=== PATIENT | female | born 1980 | race Caucasian/White ===

== ENCOUNTER 2016-12-03 11:19 | Emergency (ER) | payer MEDICAID ==
[~2016-12-03] VITALS: Ht 160 cm; Wt 79.0 kg
[~2016-12-03 11:19] MED LIST: FERR27TA PO; FIORICET PO; FOLI0.4T2 PO; IBUP800T25 PO; NITR-58 PO; PREN1TAB49 PO; PREN1TAB9 PO
[2016-12-03 11:48] VITALS: Ht 160 cm; Wt 79.0 kg
[2016-12-03] MEDS ORDERED: DIPHENHYDRAMINE 50 MG INJ IV STA (13:29)
[2016-12-03] MEDS ORDERED: KETOROLAC 30 MG INJ IV STA (13:29)
[2016-12-03] MEDS ORDERED: METOCLOPRAMIDE 10 MG INJ IV STA (13:29)
[2016-12-03] MEDS ORDERED: SOD CHLORIDE 0.9% 1,000 ML IV STA (13:29)
[2016-12-03] MEDS ORDERED: ONDA8TAB14 PO (15:56)
[2016-12-03] MEDS ORDERED: ONDA4TAB8 PO (15:56)
[2016-12-03] MEDS ORDERED: EXCED PO (15:57)
[2016-12-03 16:14] VITALS: BP 145/77; PULSE 83; RESP 20; TEMP 98.3
--- NOTE | 2016-12-03 17:04 | ERD ---
ER Documentation Chief Complaint Date/Time DATE: 12/03/16 TIME: 17:00 Chief Complaint HEADCAHE , VOMITING , GENERALIZED RASH HPI This is a 36-year-old female presents to the ED with headache and vomiting. She states that she has had these headaches in the past. She states that she gets them on and off weekly. She states that the pain is localized around her entire head. She denies neck pain. She states that this is the same type of pain she has had in the past. She denies stating that this is the "worst headache of her life." She states that she takes Tylenol and ibuprofen at home with minimal relief. She also complains of nonbloody nonbilious emesis that happened 1 time today. Her current pain started 3 days ago. She states that it is gradually getting worse. She denies abdominal pain, chest pain, shortness of breath or difficulty breathing. She denies dizziness, blurry vision or difficulty hearing. She denies sensitivity to light or sound. She denies leg pain or swelling. She denies urinary symptoms. ROS All systems reviewed and are negative except as per history of present illness. Medications Home Meds Active Scripts Acetaminophen/Aspirin/Caffeine* (Excedrin*) 1 Tab Tab, 1 TAB PO BID for 14 Days , TAB Prov:GARRICK MCLAUGHLIN PA-C 12/03/16 Ondansetron Hcl* (Zofran*) 4 Mg Tablet, 4 MG PO Q6H for NAUSEA AND/OR VOMITING, #30 TAB Prov:GARRICK MCLAUGHLIN PA-C 12/03/16 Nitrofurantoin Monohyd Macrocr* (Macrobid*) 100 Mg Capsr, 100 MG PO BID for 14 Days, CAP Prov:KRYSTAL DUENAS PA-C 07/18/16 Acetamin/Butalbital/Caffeine* (Fioricet*) 1 Tab Tab, 1 TAB PO Q4H Y for PAIN LEVEL 1-5, #30 TAB Prov:KRYSTAL DUENAS PA-C 07/18/16 Ibuprofen* (Motrin*) 800 Mg Tab, 800 MG PO Q6, #30 TAB Prov:BILL LUZ NP 02/03/16 Reported Medications Vits W-Ca,Fe,Fa(<1MG) ( Formula) 1 Tab Tablet, 1 TAB PO DAILY 03/27/14 Ferrous Sulfate (Iron) 1 Tab Tablet, 1 TAB PO DAILY 07/24/12 Folic Acid* (Folic Acid*) 0.4 Mg Tablet, 0.4 MG PO DAILY 07/24/12 Vits W-Ca,Fe,Fa(<1MG) () 1 Tab Tablet, 1 TAB PO 07/07/12 [None] No Conflict Check 04/30/10 Discontinued Scripts Ondansetron (Ondansetron Odt) 8 Mg Tab.rapdis, 8 MG PO Q6H Y for NAUSEA AND/OR VOMITING, #10 TAB Prov:GARRICK MCLAUGHLIN PA-C 12/03/16 Allergies Allergies: Coded Allergies: No Known Drug Allergies (Verified Allergy, Mild, 07/19/16) PMhx/Soc History of Surgery: Yes (cholecystectomy) Anesthesia Reaction: No Hx Neurological Disorder: No Hx Respiratory Disorders: No Hx Cardiac Disorders: Yes (GESTATIONAL HTN) Hx Psychiatric Problems: No Hx Miscellaneous Medical Probl: Yes (migraines) Hx Alcohol Use: No Hx Substance Use: No Hx Tobacco Use: No Physical Exam Vitals Physical Exam GENERAL: Well-developed, well-nourished female. Appears in mild distress. HEAD: Normocephalic, atraumatic. EYES: Pupils are equally reactive bilaterally. EOMs grossly intact. No conjunctival erythema. ENT: Moist mucous membranes. No uvula deviation. No kissing tonsils. No exudates. NECK: Supple. No lymphadenopathy or thyromegaly. No meningismus. negative kernig. negative brudinski. LUNG: Clear to auscultation bilaterally. No rhonchi, wheezing, rales or coarse breath sounds. HEART: Regular rate and rhythm. No murmurs, rubs or gallops. BACK: No midline tenderness. Extremities: Equal pulses bilaterally. No peripheral clubbing, cyanosis or edema. No unilateral leg swelling. NEUROLOGIC: Alert and oriented. Moving all four extremities. 5/5 strength in all extremities. Normal speech. Steady gait. Cranial nerves II through XII intact. SKIN: Normal color. Warm and dry. No rashes or lesions. Capillary refill < 2 seconds Results 24 hrs Current Medications Medications (Trade) Dose Ordered Sig/Shailesh Route PRN Reason Start Time Stop Time Status Last Admin Dose Admin Sodium Chloride (NS) 1,000 ml @ 1,000 mls/hr Q1H STAT IV 12/03/16 13:29 12/03/16 14:28 DC 12/03/16 14:17 Metoclopramide HCl (Reglan) 10 mg ONCE STAT IV 12/03/16 13:29 12/03/16 13:32 DC 12/03/16 14:15 Ketorolac Tromethamine (Toradol) 30 mg ONCE STAT IV 12/03/16 13:29 12/03/16 13:32 DC 12/03/16 14:15 Diphenhydramine HCl (Benadryl) 25 mg ONCE STAT IV 12/03/16 13:29 12/03/16 13:32 DC 12/03/16 14:15 Procedures/MDM ER COURSE: I kept the patient and/or family informed of laboratory and diagnostic imaging results throughout the emergency room course. MEDICATIONS: IV fluids, Toradol, Reglan and Benadryl. Patient tolerated medication well with improvement in symptoms. Urine test was negative. MEDICAL DECISION MAKING: This is a 36-year-old who presents with chronic migraine. Vital signs were reviewed. Patient is afebrile. Patient is not hypoxic. Patient is not toxic or ill-appearing. Patient has a migraine. Low suspicion for intracranial hemorrhage, meningitis, intracranial mass, concussion, temporal arteritis, stroke, elevated intracranial pressure, seizure. I do not think CT scan is warranted at this time, risk versus benefits. Patient had a recent CT scan in June 2016 which was unremarkable. Patient states that her headaches are similar to the ones that she has in the past and she denies any trauma or new injuries. Patient is also not wanting a CT scan today. DISCHARGE: At this time, patient is stable for discharge and outpatient management with no new complaints during the ER course. Patient was sent home with Lucy advised patient to follow-up with neurology as she has had these headaches in the past for better evaluation and treatment.. Patient will be discharged home with instructions to recheck for new or worsening symptoms such as fever, nausea, weakness, LOC and to follow up with primary care in the next 1 -2 days. Patient was advised to return to the ER for any new or worsening symptoms. Plan was discussed and patient and/or family understands and agrees. Home instructions were given. Departure Diagnosis: Primary Impression: Headache Headache type: unspecified Headache chronicity pattern: chronic headache Intractability: not intractable Qualified Code: R51 - Chronic nonintractable headache, unspecified headache type Condition: Stable Patient Instructions: Self-Care for Headaches Referrals: [facility] (PCP) Additional Instructions: Llame al doctor DOREEN y clari bryan ELEAZAR PARA DENTRO DE 1-2 ROSE.Dgale a la secretaria que nosotros le instruimos hacer esta eleazar.Avise o llame si castellanos condicin se empeora antes de la eleazar. Regresa aqui si peor o no mejor. GARRICK MCLAUGHLIN PA-C Dec 03, 2016 17:04 [facility] (PCP) Additional Instructions: Llame al doctor DOREEN y clari bryan ELEAZAR PARA DENTRO DE 1-2 ROSE.Dgale a la secretaria que nosotros le instruimos hacer esta eleazar.Avise o llame si castellanos condicin se empeora antes de la eleazar. Regresa aqui si peor o no mejor. GARRICK MCLAUGHLIN PA-C Dec 03, 2016 17:04
== END 2016-12-03 16:15 | disposition home or self-care (01) ==
LOC: FTE 11:19
DX: R51 Headache (principal); R11.10 Vomiting, unspecified
CPT/HCPCS: 96374; 96375; J1200; J1885; J2765; J7030; Z7502

== ENCOUNTER 2017-01-22 03:01 | Emergency (ER) | payer MEDICAID ==
[~2017-01-22] VITALS: Ht 162.6 cm; Wt 73.7 kg
[~2017-01-22 03:01] MED LIST changes: +EXCED PO; +ONDA4TAB8 PO
[2017-01-22 03:09] VITALS: Ht 162.6 cm; Wt 73.7 kg
[2017-01-22 04:25] LABS: URINE BLOOD (Dip) POC 2+ (NEGATIVE)
[2017-01-22] MEDS ORDERED: SOD CHLORIDE 0.9% 1,000 ML IV STA (04:27)
[2017-01-22] MEDS ORDERED: morphine 2 MG INJ IV STA (04:27)
[2017-01-22] MEDS ORDERED: ONDANSETRON 4 MG INJ IV STA (04:27)
[2017-01-22 04:41] LABS: ADD SCAN DIFF NO
[2017-01-22 04:48] LABS: BASOPHIL # 0.1 10^3/ul (0.0-0.1); BASOPHILS % 0.3 % (0.0-2.0); EOSINOPHILS # 0.1 10^3/ul (0.0-0.5); EOSINOPHILS % 0.5 % (0.0-7.0); HEMATOCRIT 37.8 % (37.0-47.0); HEMOGLOBIN 12.1 g/dl (12.0-16.0); LYMPHOCYTES # 1.8 10^3/ul (0.8-2.9); LYMPHOCYTES % 12.3 % (15.0-51.0); MEAN CORPUSCULAR HEMOGLOBIN 26.2 pg (29.0-33.0); MEAN CORPUSCULAR VOLUME 81.8 fl (82.0-101.0); MONOCYTE # 0.7 10^3/ul (0.3-0.9); MONOCYTES % 4.4 % (0.0-11.0); NEUTROPHIL # 12.2 10^3/ul (1.6-7.5); NEUTROPHILS % 82.1 % (39.0-77.0); PLATELET COUNT 382 10^3/UL (140-415); RED BLOOD COUNT 4.62 10^6/ul (4.20-5.40); RED CELL DISTRIBUTION WIDTH 13.9 % (11.5-14.5); WHITE BLOOD COUNT 14.9 10^3/ul (4.8-10.8)
[2017-01-22 04:56] LABS: ALBUMIN 4.1 g/dl (3.3-4.9)
[2017-01-22 04:57] LABS: POTASSIUM 3.4 mmol/L (3.5-5.1)
[2017-01-22 04:59] LABS: ALBUMIN/GLOBULIN RATIO 0.97; BILIRUBIN,INDIRECT 0.3 mg/dl (0-1.1); BILIRUBIN,TOTAL 0.3 mg/dl (0.2-1.3); CREATININE 0.61 mg/dl (0.44-1.00); TOTAL PROTEIN 8.3 g/dl (6.1-8.1)
[2017-01-22 05:00] LABS: CALCIUM 9.1 mg/dl (8.4-10.2)
--- NOTE | 2017-01-22 05:11 | RADRPT ---
PROCEDURE: CT of the abdomen and pelvis without contrast CLINICAL INDICATION: Flank pain. Evaluate for urolithiasis.. TECHNIQUE: Spiral CT images through the abdomen and pelvis without the use of contrast. The admin istered radiation dose is CTDI 11.40 and DLP 644.63. One or more of the following dose reduction te chniques were used: automated exposure control, adjustment of the mA and/or kV according to patient size, or use of iterative reconstruction technique. COMPARISON: None FINDINGS: Lack of oral and intravenous contrast somewhat limits evaluation. Slight dependent atelectasis of the lung bases is seen. No pleural effusion is seen. The liver, spleen, adrenals, left kidney, and pancreas are unremarkable in appearance. Two small no nobstructing right renal stones are seen. The larger is in the upper pole and measures 4 mm in diam eter. No left renal stones are seen. There is slight right perinephric stranding but no definite u reter or bladder stone is seen. There is no evidence for bowel obstruction, free air, or abscess. T he appendix is normal in appearance. There is colonic diverticulosis without evidence of diverticul itis. No adenopathy or ascites is seen. The uterus and adnexa are grossly unremarkable. Tiny fat-co ntaining umbilical hernia is seen.. IMPRESSION: Two small nonobstructing right renal stones. Slight right perinephric stranding without a visualize d ureter or bladder stone or hydronephrosis. This could be due to a recently passed stone. Few col onic diverticula but no evidence for diverticulitis.. Small fat-containing umbilical hernia. RPTAT: [facility] Physician Renee Date Time Electronically viewed and signed by Physician Renee on 01/22/2017 05:10 LE/
[2017-01-22] MEDS ORDERED: CEFTRIAXONE 1 GM/50 ML (PMX) 50 ML IVPB ONE (05:30)
[2017-01-22 05:41] VITALS: BP 136/85; PULSE 97; RESP 20; TEMP 98
[2017-01-22] MEDS ORDERED: DICLOFENAC SODIUM 37.5 MG/ML VIAL IV STA (05:44)
[2017-01-22] MEDS ORDERED: HYDR-906 PO (05:54)
[2017-01-22] MEDS ORDERED: CIPR500T4 PO (05:54)
[2017-01-22] MEDS ORDERED: NITR-58 PO (05:54)
[2017-01-22] MEDS ORDERED: NAPR-688 PO (05:54)
--- NOTE | 2017-01-22 06:19 | ERD ---
ER Documentation Chief Complaint Date/Time DATE: 01/22/17 TIME: 06:15 Chief Complaint right flank pain x 1 week HPI This 36-year-old female presents with right flank pain and dysuria going on for 1 week. She denies any fever or chills. She's had no nausea vomiting diarrhea. Denies any blood in her urine. Denies trauma. ROS All systems reviewed and are negative except as per history of present illness. Medications Home Meds Active Scripts Naproxen* (Naproxen*) 500 Mg Tablet, 500 MG PO BID Y for PAIN, #14 TAB Prov:RAFAEL MACDONALD DO 01/22/17 Hydrocodone/Acetaminophen ([place] 5-325 Tablet) 1 Each Tablet, 1 EACH PO Q6 for SEVERE PAIN LEVEL 7-10, #14 TAB Prov:RAFAEL MACDONALD DO 01/22/17 Nitrofurantoin Monohyd Macrocr* (Macrobid*) 100 Mg Capsr, 100 MG PO BID for 7 Days, CAP Prov:RAFAEL MACDONALD DO 01/22/17 Ciprofloxacin Hcl* (Ciprofloxacin Hcl*) 500 Mg Tablet, 500 MG PO BID for 10 Days , TAB Prov:RAFAEL MACDONALD DO 01/22/17 Acetaminophen/Aspirin/Caffeine* (Excedrin*) 1 Tab Tab, 1 TAB PO BID for 14 Days , TAB Prov:AGRRICK MCLAUGHLIN PA-C 12/03/16 Ondansetron Hcl* (Zofran*) 4 Mg Tablet, 4 MG PO Q6H for NAUSEA AND/OR VOMITING, #30 TAB Prov:GARRICK MCLAUGHLIN PA-C 12/03/16 Nitrofurantoin Monohyd Macrocr* (Macrobid*) 100 Mg Capsr, 100 MG PO BID for 14 Days, CAP Prov:KRYSTAL DUENAS PA-C 07/18/16 Acetamin/Butalbital/Caffeine* (Fioricet*) 1 Tab Tab, 1 TAB PO Q4H Y for PAIN LEVEL 1-5, #30 TAB Prov:KRYSTAL DUENAS PA-C 07/18/16 Ibuprofen* (Motrin*) 800 Mg Tab, 800 MG PO Q6, #30 TAB Prov:BILL LUZ NP 02/03/16 Reported Medications Vits W-Ca,Fe,Fa(<1MG) ( Formula) 1 Tab Tablet, 1 TAB PO DAILY 03/27/14 Ferrous Sulfate (Iron) 1 Tab Tablet, 1 TAB PO DAILY 07/24/12 Folic Acid* (Folic Acid*) 0.4 Mg Tablet, 0.4 MG PO DAILY 07/24/12 Vits W-Ca,Fe,Fa(<1MG) () 1 Tab Tablet, 1 TAB PO 07/07/12 [None] No Conflict Check 04/30/10 Allergies Allergies: Coded Allergies: No Known Drug Allergies (Verified Allergy, Mild, 07/19/16) PMhx/Soc History of Surgery: Yes (cholecystectomy) Anesthesia Reaction: No Hx Neurological Disorder: No Hx Respiratory Disorders: No Hx Cardiac Disorders: Yes (GESTATIONAL HTN) Hx Psychiatric Problems: No Hx Miscellaneous Medical Probl: Yes (migraines) Hx Alcohol Use: No Hx Substance Use: No Hx Tobacco Use: No Smoking Status: Never smoker Physical Exam Vitals Vital Signs Date Time Temp Pulse Resp B/P Pulse Ox O2 Delivery O2 Flow Rate FiO2 01/22/17 05:41 98.0 97 20 136/85 100 Room Air 01/22/17 04:32 98.2 98 20 156/90 100 01/22/17 03:09 98.7 95 20 148/74 100 Physical Exam Const: [] No distress Head: Atraumatic Eyes: Normal Conjunctiva ENT: Normal External Ears, Nose and Mouth. Neck: Full range of motion..~ No meningismus. Resp: Clear to auscultation bilaterally Cardio: Regular rate and rhythm, no murmurs Abd: Soft, mild generalized right anterior abdominal tenderness without guarding or rebound, non distended. Normal bowel sounds Skin: No petechiae or rashes Back: No midline or flank tenderness and no CVA tenderness Ext: No cyanosis, or edema Neur: Awake and alert 3, no focal deficits Psych: Normal Mood and Affect Result Diagram: 01/22/1741901/22/17419 Results 24 hrs Laboratory Tests Test 01/22/17 04:20 01/22/17 04:27 Alanine Aminotransferase (ALT/SGPT) 41IU/L Albumin 4.1g/dl Albumin/Globulin Ratio 0.97 Alkaline Phosphatase 107IU/L Anion Gap 15 Aspartate Amino Transf (AST/SGOT) 31IU/L Basophils # 0.110^3/ul Basophils % 0.3% Blood Urea Nitrogen 10mg/dl Calcium Level 9.1mg/dl Carbon Dioxide Level 28mmol/L Chloride Level 103mmol/L Creatinine 0.61mg/dl Direct Bilirubin 0.00mg/dl Eosinophils # 0.110^3/ul Eosinophils % 0.5% Globulin 4.20g/dl Glucose Level 112mg/dl Hematocrit 37.8% Hemoglobin 12.1g/dl Indirect Bilirubin 0.3mg/dl Lipase 38U/L Lymphocytes # 1.810^3/ul Lymphocytes % 12.3% Mean Corpuscular Hemoglobin 26.2pg Mean Corpuscular Hemoglobin Concent 32.0g/dl Mean Corpuscular Volume 81.8fl Mean Platelet Volume 10.0fl Monocytes # 0.710^3/ul Monocytes % 4.4% Neutrophils # 12.210^3/ul Neutrophils % 82.1% Nucleated Red Blood Cells # 0.010^3/ul Nucleated Red Blood Cells % 0.0/100WBC Platelet Count 18861^3/UL Potassium Level 3.4mmol/L Red Blood Count 4.6210^6/ul Red Cell Distribution Width 13.9% Sodium Level 143mmol/L Total Bilirubin 0.3mg/dl Total Protein 8.3g/dl White Blood Count 14.910^3/ul Bedside Urine Blood 2+ Bedside Urine Glucose (UA) Negative Bedside Urine Ketones (LAB) Negative Bedside Urine Leukocyte Esterase (L 3+ Bedside Urine Nitrite (LAB) Negative Bedside Urine Protein (LAB) 1+ Bedside Urine pH (LAB) 7.0 Current Medications Medications (Trade) Dose Ordered Sig/Shailesh Route PRN Reason Start Time Stop Time Status Last Admin Dose Admin Sodium Chloride (NS) 1,000 ml @ 1,000 mls/hr Q1H STAT IV 01/22/17 04:27 01/22/17 05:26 DC 01/22/17 04:38 Morphine Sulfate (morphine) 2 mg ONCE STAT IV 01/22/17 04:27 01/22/17 04:29 DC Ondansetron HCl 4 mg 4 mg ONCE STAT IV 01/22/17 04:27 01/22/17 04:29 DC Ceftriaxone Sodium (Rocephin) 50 ml @ 100 mls/hr ONCE ONCE IVPB 01/22/17 05:30 01/22/17 05:59 DC 01/22/17 05:44 Diclofenac Sodium (Dyloject) 37.5 mg ONCE STAT IV 01/22/17 05:44 01/22/17 05:45 DC 01/22/17 05:48 Procedures/MDM Patient with pyelonephritis per symptoms described with flank pain in addition to urinary tract infection. She was given IV fluids, Dilaudid checked, 1 g of Rocephin in the emergency room. This led to significant relief of her pain. She does have bilateral renal stones but was virtually asymptomatic in the ER and I doubt septic stone. I am going to discharge her with both Cipro and Macrobid prescriptions as well as urology follow-up through her primary care doctor. Naproxen and Placentia for pain. Abdomen pelvis interpretation: Small bilateral renal stones, no obstructing stones, no free air, no obstruction, no acute bony abnormalities. Departure Diagnosis: Primary Impression: Pyelonephritis Condition: Stable Patient Instructions: Kidney Stone, Undescended (No Symptoms), Pyelonephritis, Female (Adult) Referrals: [facility] YOU HAVE RECEIVED A MEDICAL SCREENING EXAM AND THE RESULTS INDICATE THAT YOU DO NOT HAVE A CONDITION THAT REQUIRES URGENT TREATMENT IN THE EMERGENCY DEPARTMENT. FURTHER EVALUATION AND TREATMENT OF YOUR CONDITION CAN WAIT UNTIL YOU ARE SEEN IN YOUR DOCTORS OFFICE WITHIN THE NEXT 1-2 DAYS. IT IS YOUR RESPONSIBILITY TO MAKE AN APPOINTMENT FOR FOLOW-UP CARE. IF YOU HAVE A PRIMARY DOCTOR --you should call your primary doctor and schedule an appointment IF YOU DO NOT HAVE A PRIMARY DOCTOR YOU CAN CALL OUR PHYSICIAN REFERRAL HOTLINE AT IF YOU CAN NOT AFFORD TO SEE A PHYSICIAN YOU CAN CHOSE FROM THE FOLLOWING [facility] [address] [facility]. [facility] [address] [facility]. [facility] [address] [facility] [address] [facility] [address] [facility]. [facility]. [address] [facility]. [facility] YOU HAVE RECEIVED A MEDICAL SCREENING EXAM AND THE RESULTS INDICATE THAT YOU DO NOT HAVE A CONDITION THAT REQUIRES URGENT TREATMENT IN THE EMERGENCY DEPARTMENT. FURTHER EVALUATION AND TREATMENT OF YOUR CONDITION CAN WAIT UNTIL YOU ARE SEEN IN YOUR DOCTORS OFFICE WITHIN THE NEXT 1-2 DAYS. IT IS YOUR RESPONSIBILITY TO MAKE AN APPOINTMENT FOR FOLOW-UP CARE. IF YOU HAVE A PRIMARY DOCTOR --you should call your primary doctor and schedule and appointment IF YOU DO NOT HAVE A PRIMARY DOCTOR YOU CAN CALL OUR PHYSICIAN REFERRAL HOTLINE AT . IF YOU CAN NOT AFFORD TO SEE A PHYSICIAN YOU CAN CHOSE FROM THE FOLLOWING [facility] INSTITUTIONS: [facility] [address] [place] [address] [facility] [address] [place] [address] [facility] [address] [place] [address] Additional Instructions: Llame al doctor MAANA y clari bryan ELEAZAR PARA DENTRO DE 1-2 ROSE. Consique un referral para un UROLOGIST. Dgale a la secretaria que nosotros le instruimos hacer esta eleazar.Avise o llame si castellanos condicin se empeora antes de la eleazar. Regresa aqui si peor o no mejor. RAFAEL MACDONALD DO Jan 22, 2017 06:19
== END 2017-01-22 06:15 | disposition home or self-care (01) ==
LOC: E/R 03:01
DX: N12 Tubulo-interstitial nephritis, not specified as acute or chronic (principal)
CPT/HCPCS: 36415; 74176; 80053; 81003; 83690; 85025; 96374; 96375; J0696; J7030; Z7502; Z7610; J2270; J2405

== ENCOUNTER 2017-03-19 16:56 | Emergency (ER) | payer SELFPAY ==
[~2017-03-19] VITALS: Wt 81.5 kg
[~2017-03-19 16:56] MED LIST changes: +CIPR500T4 PO; +HYDR-906 PO; +NAPR-688 PO
== END 2017-03-19 23:09 | disposition left against medical advice (07) ==
LOC: E/R 16:56
DX: Z53.21 Procedure and treatment not carried out due to patient leaving prior to being seen by health care provider (principal)

== ENCOUNTER 2018-12-07 10:11 | Emergency (ER) | payer MEDICAID ==
[~2018-12-07] VITALS: Wt 79.3 kg
[~2018-12-07 10:11] MED LIST changes: +HYDR-4011 PO; -HYDR-906 PO; +IBUP-1542 PO; -IBUP800T25 PO; +IBUP800T48 PO; +METO10TA92 PO
[2018-12-07 10:38] VITALS: BP 172/85; PULSE 87; RESP 17
[2018-12-07] MEDS ORDERED: ONDANSETRON (ODT) 4 MG TAB ODT STA (11:18)
[2018-12-07] MEDS ORDERED: KETOROLAC 60 MG INJ IM STA (11:18)
[2018-12-07] MEDS ORDERED: ONDA8TAB14 PO (12:09)
[2018-12-07] MEDS ORDERED: FIORICET PO (12:09)
--- NOTE | 2018-12-07 12:16 | ERD ---
ER Documentation Chief Complaint Chief Complaint HEADACHE X 2 DAYS HPI 38-year-old female presents with right-sided headache and nausea vomiting last 2 days. She has been here several times for similar symptoms. She gives a history of migraines. She denies any visual changes, fevers, deficits, additional symptoms. She has responded well to Toradol in the past. ROS All systems reviewed and are negative except as per history of present illness. Medications Home Meds Active Scripts Ondansetron (Ondansetron Odt) 8 Mg Tab.rapdis, 8 MG PO Q6H PRN for NAUSEA AND/OR VOMITING, #8 TAB Prov:AMITA JEFFRIES MD 12/07/18 Acetamin/Butalbital/Caffeine* (Fioricet*) [id number] Tab, 1 TAB PO Q6H PRN for PAIN, #20 TAB Prov:AMITA JEFFRIES MD 12/07/18 Ibuprofen* (Motrin*) 600 Mg Tab, 600 MG PO Q6H PRN for PAIN AND OR ELEVATED TEMP, #30 TAB Prov:VIRGINIA ARELLANO NP 11/06/18 Metoclopramide* (Reglan*) 10 Mg Tablet, 10 MG PO Q6 PRN for NAUSEA AND/OR VOMITING, #10 TAB Prov:RANI SERRA MD 04/12/18 Hydrocodone/Acetaminophen ([place] 5-325 Tablet) 1 Each Tablet, 1 TAB PO QHS PRN for PAIN, #7 TAB Prov:RANI SERRA MD 04/12/18 Naproxen* (Naproxen*) 500 Mg Tablet, 500 MG PO BID PRN for PAIN, #14 TAB Prov:RAFAEL MACDONALD DO 01/22/17 Hydrocodone/Acetaminophen ([place] 5-325 Tablet) 1 Each Tablet, 1 EACH PO Q6 for SEVERE PAIN LEVEL 7-10, #14 TAB Prov:RAFAEL MACDONALD DO 01/22/17 Nitrofurantoin Monohyd Macrocr* (Macrobid*) 100 Mg Capsr, 100 MG PO BID for 7 Days, CAP Prov:RAFAEL MACDONALD DO 01/22/17 Ciprofloxacin Hcl* (Ciprofloxacin Hcl*) 500 Mg Tablet, 500 MG PO BID for 10 Days, TAB Prov:RAFAEL MACDONALD DO 01/22/17 Acetaminophen/Aspirin/Caffeine* (Excedrin*) 1 Tab Tab, 1 TAB PO BID for 14 Days, TAB Prov:GARRICK MCLAUGHLIN PA-C 12/03/16 Ondansetron Hcl* (Zofran*) 4 Mg Tablet, 4 MG PO Q6H for NAUSEA AND/OR VOMITING, #30 TAB Prov:GARRICK MCLAUGHLIN PA-C 12/03/16 Nitrofurantoin Monohyd Macrocr* (Macrobid*) 100 Mg Capsr, 100 MG PO BID for 14 Days, CAP Prov:KRYSTAL DUENAS PA-C 07/18/16 Acetamin/Butalbital/Caffeine* (Fioricet*) 1 Tab Tab, 1 TAB PO Q4H PRN for PAIN LEVEL 1-5, #30 TAB Prov:KRYSTAL DUENAS PA-C 07/18/16 Ibuprofen* (Motrin*) 800 Mg Tab, 800 MG PO Q6, #30 TAB Prov:BILL LUZ NP 02/03/16 Reported Medications Vits W-Ca,Fe,Fa(<1MG) ( Formula) 1 Tab Tablet, 1 TAB PO DAILY 03/27/14 Ferrous Sulfate (Iron) 1 Tab Tablet, 1 TAB PO DAILY 07/24/12 Folic Acid* (Folic Acid*) 0.4 Mg Tablet, 0.4 MG PO DAILY 07/24/12 Vits W-Ca,Fe,Fa(<1MG) () 1 Tab Tablet, 1 TAB PO 07/07/12 [None] No Conflict Check 04/30/10 Allergies Allergies: Coded Allergies: No Known Drug Allergies (Verified Allergy, Mild, 07/19/16) PMhx/Soc History of Surgery: Yes (csection, gallbladder) Anesthesia Reaction: No Hx Neurological Disorder: No Hx Respiratory Disorders: No Hx Cardiac Disorders: Yes (HTN) Hx Psychiatric Problems: No Hx Miscellaneous Medical Probl: No Hx Alcohol Use: No Hx Substance Use: No Hx Tobacco Use: No FmHx Family History: No diabetes, No coronary disease, No other Physical Exam Vitals Vital Signs Date Temp Pulse Resp B/P (MAP) Pulse Ox O2 O2 Flow FiO2 Time Delivery Rate 12/07/18 98.9 87 17 172/85 100 10:38 (114) Physical Exam Const: No acute distress Head: Atraumatic Eyes: Normal Conjunctiva ENT: Normal External Ears, Nose and Mouth. Neck: Full range of motion. No meningismus. Resp: Clear to auscultation bilaterally Cardio: Regular rate and rhythm, no murmurs Abd: Soft, non tender, non distended. Normal bowel sounds Skin: No petechiae or rashes Back: No midline or flank tenderness Ext: No cyanosis, or edema Neur: Awake and alert Psych: Normal Mood and Affect Results 24 hrs Laboratory Tests Test 12/07/18 11:33 POC Beta HCG, Qualitative NEGATIVE Current Medications Medications Dose Sig/Shailesh Start Time Status Last (Trade) Ordered Route PRN Stop Time Admin Dose Reason Admin Ketorolac 60 mg ONCE STAT 12/07/18 DC 12/07/18 Tromethamine IM 11:18 11:37 (Toradol) 12/07/18 11:20 Ondansetron 8 mg ONCE STAT 12/07/18 DC 12/07/18 HCl (Zofran ODT 11:18 11:37 Odt) 12/07/18 11:20 Procedures/MDM Patient presents with acute right-sided headache with nausea and vomiting, nonbilious nonbloody. Signs or symptoms are consistent with recurrent migrain es. She was given Toradol 60 mg IM, Zofran 8 mg by mouth. Current signs or symptoms and history do not suggest subarachnoid hemorrhage, neurologic deficit, meningitis, additional emergent causes of headache. She will treated with Fioricet, Zofran, primary care follow-up and return precautions. The patient was stable with no new complaints during the ER course. Clinically, there is no current evidence to suggest meningitis, sepsis, acute abdomen, pneumonia, stroke, acute coronary syndrome, pulmonary embolism, aortic dissection or any other emergent condition appearing to require further evaluation or hospitalization. Patient counseled regarding my diagnostic impression and care plan. Prior to discharge all questions answered. Pt agrees with treatment plan and understands strict return precautions. Pt is instructed to follow up with primary care provider within 24-48 hours. Precautionary instructions provided including instructions to return to the ER if not improving or for any worsening or changing symptoms or concerns. Departure Diagnosis: Primary Impression: Headache Headache type: unspecified Headache chronicity pattern: acute headache Intractability: not intractable Qualified Codes: R51 - Headache Condition: Stable Patient Instructions: Self-Care for Headaches Referrals: NO PRIMARY,CARE PHYSICIAN (PCP) [facility] ([facility]) Usted se roque hecho un examen mdico de control que le indica que no est en bryan condicin que requiera tratamiento urgente en el Departamento de Emergencia. Un estudio ms profundo y el tratamiento de castellanos condicin pueden esperar sin ningn riesgo hasta que usted sea atendida/o en el consultorio de castellanos mdico o bryan clnica. Es responsabilidad suya arreglar bryan jerri para el seguimiento del lily. MANEJO DE CONDICIONES NO URGENTES EN EL FUTURO 1) Si usted tiene un mdico de atencin primaria: Usted debera llamar a castellanos mdico de atencin primaria antes de venir al departamento de emergencia. Despus de las horas de consultorio, castellanos doctor o castellanos asociado/a est disponible por telfono. El mdico o enfermero de leonid en el servicio telefnico puede asesorarle por arnoldo medio para atender el problema, o lily contrario se puede programar bryan jerri. 2) Si usted no tiene un mdico de atencin primaria: Llame al mdico o clnica de referencia que aparece abajo simone las horas de consultorio para hacer bryan jerri para que le vean. CLINICAS: [facility] [phone] [address] [facility] [place] [phone] [address] [facility] [phone] [facility] [phone] [address] [facility] [phone] [facility]. [phone] [address] Additional Instructions: regresa para mas o nueva simptomas. AMITA JEFFRIES MD Dec 07, 2018 12:16
== END 2018-12-07 12:38 | disposition home or self-care (01) ==
LOC: FTE 10:11
DX: R51 Headache (principal); I10 Essential (primary) hypertension; R11.2 Nausea with vomiting, unspecified
CPT/HCPCS: 81025; 96372; J1885; Z7502; Z7610